=== PATIENT | female | born 1980 ===

== ENCOUNTER 2022-12-06 07:00 | Inpatient (IN) | payer OTHER ==
[~2022-12-06] VITALS: Ht 162.6 cm; Wt 8.6 kg
[2022-12-06] MEDS ORDERED: GLUMETZA500 MG PO (09:27)
[2022-12-14] MEDS ORDERED: IBUPROFEN800 MG PO (09:13)
== END 2022-12-14 10:06 | disposition home or self-care (01) | DRG 743 ==
LOC: ADM 07:00 → EDSTATUS 12-11 07:00 → SURH 12-11 07:00 → CIR.AMB 12-11 07:00 → SURH 12-11 15:15 → O/R 12-11 15:29 → OB/GYN 12-12 00:17
PROVIDERS: ADMIT Obstetrics & Gynecology; ATTEND Obstetrics & Gynecology
PROC: 0DNW0ZZ Release Peritoneum, Open Approach (ICD-10-PCS; 2022-12-11)
PROC: 0UT90ZZ Resection of Uterus, Open Approach (ICD-10-PCS; principal; 2022-12-11 15:15)
DX: D25.1 Intramural leiomyoma of uterus (principal); N80.03 Adenomyosis of the uterus; N72 Inflammatory disease of cervix uteri; Z20.822 Contact with and (suspected) exposure to COVID-19; N73.6 Female pelvic peritoneal adhesions (postinfective)

== ENCOUNTER 2022-12-19 06:28 | Emergency (ER) | payer OTHER ==
[~2022-12-19] VITALS: Ht 162.6 cm; Wt 99.8 kg
[~2022-12-19 06:28] MED LIST: GLUMETZA500 MG PO; IBUPROFEN800 MG PO
== END 2022-12-19 12:41 | disposition home or self-care (01) ==
LOC: ER 06:28
DX: K52.89 Other specified noninfective gastroenteritis and colitis (principal); R10.9 Unspecified abdominal pain; A08.8 Other specified intestinal infections; R11.10 Vomiting, unspecified